=== PATIENT | female | born 1980 | race American Indian/Alaskan Native ===

== ENCOUNTER 2024-03-30 13:29 | Emergency (ER) | payer BC, OTHER ==
[~2024-03-30] VITALS: Ht 165.1 cm; Wt 74.5 kg
[~2024-03-30 13:29] MED LIST: CITALOPRAM HBR40 MG PO; GABAPENTIN400 MG PO; ONDANSETRON ODT8 MG PO; QULIPTA60 MG PO; RINVOQ ER15 MG PO
[2024-03-30] MEDS ORDERED: FAMOTIDINE40 MG PO (13:36)
[2024-03-30] MEDS ORDERED: SUCRALFATE1 GM PO (13:36)
[2024-03-30] MEDS ORDERED: ondansetron HCL 4 MG/2 ML VIAL IV ONE (13:45)
[2024-03-30] MEDS ORDERED: SODIUM CHLORIDE 0.9% 1,000 ML IV ONE (13:45)
[2024-03-30] MEDS ORDERED: LIDOCAINE & ANTACID 35 ML BTL PO ONE (13:45)
[2024-03-30] MEDS ORDERED: PANTOPRAZOLE SODIUM 40 MG/10 ML VIAL IV ONE (13:45)
[2024-03-30 13:50] LABS: BASOPHILS 0.3 % (0-2); EOSINOPHILS 0.2 % (0-6); HEMOGLOBIN 13.1 g/dL (12.0-18.0); LYMPHOCYTES 9.5 % (24-44); MCH 29.1 (27-36); MCHC 33.6 g/dl (30-36); MCV 86.7 fl (81-99); MONOCYTES 6.4 % (0-12); NEUTROPHILS 83.6 % (39-80); PLATELET COUNT 240 K/uL (140-440); RDW 13.4 (10.5-15.0)
[2024-03-30 14:06] LABS: ALBUMIN 4.1 g/dL (3.4-5.0); ALBUMIN/GLOBULIN RATIO 1.21 (1.1-2.4); ANION GAP 14.3 (7-21); BILIRUBIN, TOTAL 0.4 ng/dL (0.2-1.0); BUN/CREATININE RATIO 7.69 (6.0-28.6); CALCIUM 8.7 mg/dL (8.5-10.1); CREATININE, SERUM 0.91 mg/dL (0.55-1.02); POTASSIUM 3.3 mmol/L (3.5-5.1); PROTEIN, TOTAL 7.5 g/dL (6.4-8.2)
[2024-03-30] MEDS ORDERED: ONDANSETRON ODT8 MG PO (14:43)
[2024-03-30] MEDS ORDERED: LIDOCAINE HCL100 ML PO (14:43)
[2024-03-30] MEDS ORDERED: REGLAN10 MG PO (14:43)
[2024-03-30 14:56] VITALS: BP 114/73
== END 2024-03-30 14:58 | disposition home or self-care (01) ==
LOC: ED 13:29
PROVIDERS: Emergency Medicine
DX: R10.10 Upper abdominal pain, unspecified (principal); Z88.0 Allergy status to penicillin; Z88.8 Allergy status to other drugs, medicaments and biological substances; Z79.899 Other long term (current) drug therapy
CPT/HCPCS: 36415; 80053; 83690; 84703; 85025; 96374; 96375; 99284-25; J2405; J2470; J7030